=== PATIENT | female | born 1955 | race African-American/Black ===

== ENCOUNTER 2020-06-27 15:43 | Inpatient (IN) | payer MEDICARE, OTHER ==
[~2020-06-27] VITALS: Ht 165.1 cm; Wt 80.5 kg
[2020-06-27] MEDS ORDERED: ASPIRIN 81MG TABLET PO ONE (16:30)
[2020-06-27] MEDS ORDERED: NITROGLYCERIN 0.4MG TABLET SL SL ONE (16:30)
[2020-06-27 16:51] LABS: EOSINOPHILS % 2.7 % (0.0-5.0); HEMATOCRIT. 37.8 % (36.0-48.0); HEMOGLOBIN. 12.8 g/dL (12.0-16.0); LYMPHOCYTES % 22.6 % (20.0-50.0); MEAN CORPUSCULAR HEMOGLOBIN 30.6 pg (28.0-32.0); MEAN PLATELET VOLUME 9.2 fl (7.4-10.4); MONOCYTES % 8.8 % (2.0-8.0); NEUTROPHILS % 64.9 % (40.0-76.0); PLATELET 231 x1000/uL (130-400); RED CELL DISTRIBUTION WIDTH 13.8 % (11.6-14.6)
[2020-06-27 16:59] LABS: CHLORIDE 106 mEq/L (98-107)
[2020-06-27 17:05] LABS: ETHANOL BLOOD < 10 mg/dL
[2020-06-27] MEDS ORDERED: POTASSIUM CHLORIDE 20MEQ/PACKET PO ONE (18:00)
[2020-06-27 19:47] LABS: *AMPHETAMINES SCREEN URINE NEGATIVE (NEGATIVE); *BARBITURATES SCREEN URINE NEGATIVE (NEGATIVE); *BENZODIAZEPINES SCREEN URINE NEGATIVE (NEGATIVE); *COCAINE SCREEN URINE NEGATIVE (NEGATIVE)
[2020-06-27 19:48] LABS: CANNABINOID URINE SCREEN NEGATIVE (NEGATIVE); METHADONE URINE SCREEN NEGATIVE (NEGATIVE); OPIATES URINE SCREEN NEGATIVE (NEGATIVE); PHENCYCLIDINE URINE SCREEN NEGATIVE (NEGATIVE)
[2020-06-27] MEDS ORDERED: ACETAMINOPHEN 325MG TABLET PO PRN (23:15)
[2020-06-27] MEDS ORDERED: POTASSIUM CHLORIDE 20MEQ TABLET SR PO NR (23:15)
[2020-06-27] MEDS: NITROGLYCERIN OINT 1GM/INCH UDPKT TD SCH (23:43)
[2020-06-27] MEDS ORDERED: DYR5 MT (23:54)
[2020-06-27] MEDS ORDERED: ASPI-1406 PO (23:54)
[2020-06-27] MEDS ORDERED: LISI2.5T47 MT (23:54)
[2020-06-28] VITALS (8 sets, daily range): BP systolic 105–151; BP diastolic 56–74
[2020-06-28] MEDS ORDERED: IOHEXOL-300 100 ML BOTTLE ONE (01:20)
[2020-06-28] MEDS ORDERED: ENOXAPARIN 40MG/0.4ML SYR SUBCUT SCH ×2 (01:45→09:00)
[2020-06-28 03:13] LABS: CREATINE KINASE 52 IU/L (26-192); CREATINE KINASE MB FRACTION < 1.0 ng/mL (0.5-3.6)
[2020-06-28] MEDS: ENOXAPARIN 80MG/0.8ML SYR SUBCUT SCH ×2 (03:28→14:37)
[2020-06-28] MEDS: NITROGLYCERIN OINT 1GM/INCH UDPKT TD SCH ×2 (05:30→12:08)
[2020-06-28] MEDS ORDERED: METOPROLOL TARTRATE 25MG TABLET PO SCH (09:00)
[2020-06-28 09:13] LABS: HEMATOCRIT 42.3 % (36.0-48.0); HEMOGLOBIN 13.8 g/dL (12.0-16.0); MEAN CORPUSCULAR HEMOGLOBIN 29.9 pg (28.0-32.0); MEAN CORPUSCULAR VOLUME 91.4 fL (81.0-99.0); PLATELET 190 x1000/uL (130-400); RED BLOOD CELL COUNT 4.63 mill/uL (4.2-5.4); RED CELL DISTRIBUTION WIDTH 13.8 % (11.6-14.6)
[2020-06-28] MEDS: ASPIRIN 81MG TABLET PO SCH (09:14)
[2020-06-28] MEDS: PANTOPRAZOLE 40MG DR TABLET PO SCH (09:14)
[2020-06-28] MEDS: LISINOPRIL 20MG TABLET PO SCH (09:15)
[2020-06-28 09:23] LABS: CHLORIDE 107 mEq/L (98-107)
[2020-06-28 09:33] LABS: LDL CHOLESTEROL 57 mg/dL (5-100)
[2020-06-28 09:34] LABS: CREATINE KINASE 55 IU/L (26-192); CREATINE KINASE MB FRACTION < 1.0 ng/mL (0.5-3.6); HDL CHOLESTEROL 66 mg/dL (40-59)
[2020-06-28 17:51] LABS: CREATINE KINASE 49 IU/L (26-192)
[2020-06-28 17:53] LABS: CREATINE KINASE MB FRACTION < 1.0 ng/mL (0.5-3.6)
[2020-06-29] VITALS: BP 118/52
[2020-06-29] MEDS: ENOXAPARIN 80MG/0.8ML SYR SUBCUT SCH ×2 (01:06→14:36)
[2020-06-29 04:00] VITALS: BP 113/52
[2020-06-29 08:00] VITALS: BP 129/59
[2020-06-29] MEDS: LISINOPRIL 20MG TABLET PO SCH (09:37)
[2020-06-29] MEDS: PANTOPRAZOLE 40MG DR TABLET PO SCH (09:37)
[2020-06-29] MEDS: ASPIRIN 81MG TABLET PO SCH (09:37)
[2020-06-29 12:00] VITALS: BP 136/53
[2020-06-29] MEDS ORDERED: PROT40 MT (13:13)
[2020-06-29] MEDS ORDERED: APIX5TAB MT (13:13)
[2020-06-29] MEDS ORDERED: APIX5TAB PO (13:13)
[2020-06-29 14:07] VITALS: BP 130/53
[2020-06-29] MEDS ORDERED: ASPI-1406 PO (15:01)
[2020-06-29] MEDS ORDERED: FAMOTIDINE 20MG TABLET PO SCH (21:00)
== END 2020-06-29 15:40 | disposition home or self-care (01) | DRG 176 ==
LOC: ER 15:43 → 8WST 17:59 → EDBEDREQ 18:01 → EDBEDREQTM 18:01 → ENRESERV 20:38
PROVIDERS: ADMIT Internal Medicine; ATTEND Internal Medicine
DX: I26.93 Single subsegmental thrombotic pulmonary embolism without acute cor pulmonale (principal); I31.3 Pericardial effusion (noninflammatory); E87.6 Hypokalemia; I10 Essential (primary) hypertension; Z79.01 Long term (current) use of anticoagulants; Z79.899 Other long term (current) drug therapy
CPT/HCPCS: 36415; 71045; 71275; 80053; 80061; 80305; 80320; 82550; 82553; 83605; 83880; 84484; 85025; 85027; 85379; 86850; 86900; 93005; 93306; 93970; 99285; J1650; Q9967; G0480